=== PATIENT | male | born 1975 | race Caucasian/White ===

== ENCOUNTER 2017-01-29 08:07 | Emergency (ER) | payer MEDICARE, OTHER ==
[~2017-01-29] VITALS: Ht 188 cm; Wt 90.7 kg
[~2017-01-29 08:07] MED LIST: ALPR0.5T PO; BP MED PO; LAMO150T2 PO; LISI-603 PO; MIRT45TA5 PO; NEBI5TAB8 PO; OMEP20TA20 PO; OXYC15TA46 PO; ZIPR80CA2 PO; [UNRECOGNIZED DRUG - OTHER] PO; [UNRECOGNIZED DRUG - OTHER] PO
--- NOTE | 2017-01-29 08:33 | NUR ---
PT RAEC'D TO ER C/O BACK PAIN CHRONIC . HAD EPIDURAL X2 01/19/17 DIDNT FU FOR MD WAS NOTIFIED TO CONTACT . ABLE TOP WLAK SMELLS OF TSH . AND SPEECH OS SLURRED . AWAITING EVALUATION BY ER PROVIDER.
[2017-01-29 08:42] VITALS: BP 107/65
== END 2017-01-29 08:44 | disposition home or self-care (01) ==
LOC: ER 08:10
DX: G89.29 Other chronic pain (principal); M54.5 Low back pain; M79.662 Pain in left lower leg; K50.90 Crohn's disease, unspecified, without complications; C18.9 Malignant neoplasm of colon, unspecified; M19.90 Unspecified osteoarthritis, unspecified site; Z88.6 Allergy status to analgesic agent; Z88.8 Allergy status to other drugs, medicaments and biological substances
CPT/HCPCS: A4606; Z7502; Z7610

== ENCOUNTER 2019-12-13 12:39 | Emergency (ER) | payer BC, MEDICAID ==
[~2019-12-13] VITALS: Ht 182.9 cm; Wt 95.3 kg
[~2019-12-13 12:39] MED LIST changes: -MIRT45TA5 PO; +MIRT45TA83 PO
--- NOTE | 2019-12-13 12:54 | NUR ---
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
--- NOTE | 2019-12-13 13:26 | NUR ---
SEEN AND EXAMINED BY RONIT TAI
[2019-12-13] MEDS ORDERED: IBUPROFEN 600 MG TABLET PO ONE ×2 (13:30→13:38)
[2019-12-13] MEDS ORDERED: IV NS 0.9% 1,000 ML BAG IV ONE ×2 (13:30→14:30)
--- NOTE | 2019-12-13 13:40 | NUR ---
IV LINE ESTABLISHED, BLOOD DRAWN AND SENT TO LAB.
[2019-12-13 13:49] LABS: BASOPHILS # (AUTO) 0.1 /CMM (0.0-0.2); BASOPHILS % (AUTO) 0.5 % (0.0-2.0); EOSINOPHILS % (AUTO) 2.9 % (0.0-6.0); HEMATOCRIT 41 % (39-51); HEMOGLOBIN 13.7 g/dL (13.5-17.5); MEAN CORPUSCULAR HGB CONC 34 g/dl (31.0-36.0); MEAN CORPUSCULAR VOLUME 85 fL (80-96); MONOCYTES # (AUTO) 1.4 /CMM (0.1-1.30); MONOCYTES % (AUTO) 8.3 % (2.0-12.0); NEUTROPHILS # (AUTO) 14.1 /CMM (1.8-8.9); NEUTROPHILS % (AUTO) 82.3 % (43.0-81.0); PLATELET COUNT (AUTO) 335 /CMM (150-450); RED BLOOD CELL COUNT(AUTO) 4.76 MIL/uL (4.5-6.0); WHITE BLOOD COUNT (AUTO) 17.2 K/uL (4.3-11.0)
[2019-12-13 13:55] LABS: CALCIUM, SERUM 8.9 mg/dL (8.5-10.1); CREATININE 0.9 mg/dL (0.6-1.3); POTASSIUM 4.1 mmol/L (3.5-5.1)
[2019-12-13] MEDS ORDERED: VANCOMYCIN 1 GM in IV D5W 250 ML IV ONE (14:30)
[2019-12-13] MEDS ORDERED: PIPERACILLIN /TAZOBACTAM 3.375 G in IV D5W 50 ML IV ONE (14:30)
[2019-12-13 15:00] VITALS: BP 145/91
--- NOTE | 2019-12-13 15:10 | NUR ---
IV removed. Catheter intact and site benign. Pressure and 4x4 applied to site. No bleeding noted. Patient eloped from facility. ER MD notified.
--- NOTE | 2019-12-13 15:10 | NUR ---
Patient eloped from facility. ER MD notified.
== END 2019-12-13 15:12 | disposition left against medical advice (07) ==
LOC: ER 12:41
DX: L98.499 Non-pressure chronic ulcer of skin of other sites with unspecified severity (principal); R22.31 Localized swelling, mass and lump, right upper limb; G40.909 Epilepsy, unspecified, not intractable, without status epilepticus; M19.90 Unspecified osteoarthritis, unspecified site; Z88.6 Allergy status to analgesic agent; Z88.8 Allergy status to other drugs, medicaments and biological substances; Z85.038 Personal history of other malignant neoplasm of large intestine; Z79.899 Other long term (current) drug therapy
CPT/HCPCS: 36415; 80048; 83605; 85025; 87040 ×2; 96365; 99284; J2543; J7030 ×2; J7060; J3370

== ENCOUNTER 2021-07-19 22:26 | Emergency (ER) | payer MEDICARE, OTHER ==
[~2021-07-19] VITALS: Ht 190.5 cm; Wt 81.6 kg
[~2021-07-19 22:26] MED LIST changes: -LISI-603 PO; +LISI20TA30 PO
--- NOTE | 2021-07-19 23:16 | NUR ---
PT AAOX4. BIBSELF C/O SI WITH PLAN TO WALK ON FREEWAY. -HI. PLACED IN GOWN, ON MONITOR, AND PULSE OX. SITTER AT BEDSIDE. AWAITING ER MD FOR EVAL AND ORDERS.
[2021-07-19 23:48] LABS: CALCIUM, SERUM 8.5 mg/dL (8.5-10.1); CARBON DIOXIDE 25 mmol/L (21-32); CHLORIDE 101 mmol/L (98-107); CREATININE 0.8 mg/dL (0.6-1.3); GLUCOSE 152 mg/dL (74-106); POTASSIUM 3.5 mmol/L (3.5-5.1); SODIUM SERUM 137 mmol/L (136-145); UREA NITROGEN, BLOOD 9 mg/dL (7-18)
[2021-07-20 00:04] LABS: ACETAMINOPHEN 0 ug/ml (10-30); ALANINE AMINOTRANSFERASE 27 U/L (12-78); ALBUMIN 3.6 g/dL (3.4-5.0); ALCOHOL, BLOOD < 3 mg/dL (0-0); ALKALINE PHOSPHATASE 97 U/L (46-116); ASPARTATE AMINOTRANSFERASE 20 U/L (15-37); BILIRUBIN,DIRECT 0.1 mg/dL (0.0-0.2); BILIRUBIN,TOTAL 0.3 mg/dL (0.2-1.0); TOTAL PROTEIN, SERUM 7.5 g/dL (6.4-8.2)
[2021-07-20 00:05] LABS: BASOPHILS # (AUTO) 0.1 K/uL (0.0-0.2); BASOPHILS % (AUTO) 0.6 % (0.0-2.0); EOSINOPHILS % (AUTO) 3.9 % (0.0-6.0); HEMATOCRIT 42 % (39-51); HEMOGLOBIN 13.7 g/dL (13.5-17.5); LYMPHOCYTES # (AUTO) 1.6 K/uL (0.8-4.8); LYMPHOCYTES % (AUTO) 13.3 % (20.0-44.0); MEAN CORPUSCULAR HGB CONC 33 g/dl (31.0-36.0); MEAN CORPUSCULAR VOLUME 90 fL (80-96); MONOCYTES # (AUTO) 1.3 K/uL (0.1-1.30); MONOCYTES % (AUTO) 10.5 % (2.0-12.0); NEUTROPHILS # (AUTO) 8.6 K/uL (1.8-8.9); NEUTROPHILS % (AUTO) 71.7 % (43.0-81.0); PLATELET COUNT (AUTO) 457 K/uL (150-450); RED BLOOD CELL COUNT(AUTO) 4.67 MIL/uL (4.5-6.0)
[2021-07-20 01:23] LABS: BILIRUBIN,URINE NEGATIVE (NEGATIVE); COLOR,URINE YELLOW (YELLOW); LEUKOCYTE ESTERASE ,URINE NEGATIVE (NEGATIVE); NITRITE, URINE NEGATIVE (NEGATIVE); PH,URINE 7.5 (5.0-8.0); PROTEIN,URINE NEGATIVE (NEGATIVE); UGLUCOSE NEGATIVE (NEGATIVE); UROBILINOGEN,URINE 0.2 EU/dL (0.2)
--- NOTE | 2021-07-20 03:17 | NUR ---
PT STATED HE DENIES SI AND HI. REQUESTED TO LEAVE ED. ER MD AWARE.
[2021-07-20 03:18] VITALS: BP 138/75
== END 2021-07-20 03:19 | disposition home or self-care (01) ==
LOC: ER 22:33
DX: F15.10 Other stimulant abuse, uncomplicated (principal); F32.A Depression, unspecified; K50.90 Crohn's disease, unspecified, without complications; Z79.899 Other long term (current) drug therapy; Z88.6 Allergy status to analgesic agent; G40.909 Epilepsy, unspecified, not intractable, without status epilepticus; Z20.822 Contact with and (suspected) exposure to COVID-19; Z53.29 Procedure and treatment not carried out because of patient's decision for other reasons
CPT/HCPCS: 36415; 80048-TC; 80076-TC; 85025-TC; C9803; G0480

== ENCOUNTER 2021-11-16 22:18 | Emergency (ER) | payer MEDICARE, OTHER ==
[~2021-11-16] VITALS: Ht 190.5 cm; Wt 81.6 kg
--- NOTE | 2021-11-17 02:40 | NUR ---
BIBS. TO ER BED 19. AAOX4. NOT IN RESP DISTRESS. AMBULATORY ON STEADY GAIT. CAME IN SEEKING VOLUNTARY PSYCH ADMISSION. PT VERBALIZED SUICIDAL IDEATION WITH PLAN TO JUMP OF A BRIDGE. DENIES BOTH AUDITORY AND VISUAL HALLUCINATION. AWAITING MD FOR EVAL.
--- NOTE | 2021-11-17 02:54 | NUR ---
SECURITY AT BEDSIDE FOR WANDING
[2021-11-17 03:25] LABS: BILIRUBIN,URINE NEGATIVE (NEGATIVE); COLOR,URINE YELLOW (YELLOW); LEUKOCYTE ESTERASE ,URINE NEGATIVE (NEGATIVE); NITRITE, URINE NEGATIVE (NEGATIVE); PROTEIN,URINE NEGATIVE (NEGATIVE); UGLUCOSE NEGATIVE (NEGATIVE); UROBILINOGEN,URINE 0.2 EU/dL (0.2)
[2021-11-17 03:43] LABS: BASOPHILS # (AUTO) 0.1 K/uL (0.0-0.2); BASOPHILS % (AUTO) 1.3 % (0.0-2.0); EOSINOPHILS % (AUTO) 5.3 % (0.0-6.0); HEMATOCRIT 43 % (39-51); HEMOGLOBIN 14.4 g/dL (13.5-17.5); LYMPHOCYTES # (AUTO) 2.2 K/uL (0.8-4.8); LYMPHOCYTES % (AUTO) 21.7 % (20.0-44.0); MEAN CORPUSCULAR HGB CONC 34 g/dl (31.0-36.0); MEAN CORPUSCULAR VOLUME 88 fL (80-96); MONOCYTES % (AUTO) 9.6 % (2.0-12.0); NEUTROPHILS # (AUTO) 6.4 K/uL (1.8-8.9); NEUTROPHILS % (AUTO) 62.1 % (43.0-81.0); PLATELET COUNT (AUTO) 495 K/uL (150-450); RED BLOOD CELL COUNT(AUTO) 4.83 MIL/uL (4.5-6.0); WHITE BLOOD COUNT (AUTO) 10.4 K/uL (4.3-11.0)
[2021-11-17 04:36] LABS: CALCIUM, SERUM 8.8 mg/dL (8.5-10.1); CARBON DIOXIDE 30 mmol/L (21-32); CHLORIDE 103 mmol/L (98-107); CREATININE 0.8 mg/dL (0.6-1.3); GLUCOSE 127 mg/dL (74-106); POTASSIUM 3.3 mmol/L (3.5-5.1); SODIUM SERUM 140 mmol/L (136-145); UREA NITROGEN, BLOOD 14 mg/dL (7-18)
[2021-11-17 04:47] LABS: ALANINE AMINOTRANSFERASE 15 U/L (12-78); ALBUMIN 3.9 g/dL (3.4-5.0); ALCOHOL, BLOOD < 3 mg/dL (0-0); ALKALINE PHOSPHATASE 102 U/L (46-116); ASPARTATE AMINOTRANSFERASE 14 U/L (15-37); BILIRUBIN,DIRECT 0.1 mg/dL (0.0-0.2); BILIRUBIN,TOTAL 0.3 mg/dL (0.2-1.0); TOTAL PROTEIN, SERUM 8.3 g/dL (6.4-8.2)
[2021-11-17 04:48] LABS: ACETAMINOPHEN 0 ug/ml (10-30)
[2021-11-17] MEDS ORDERED: OLANZAPINE 5 MG TABLET ONE (05:07)
[2021-11-17] MEDS ORDERED: HYDROCODONE/APAP 5/325MG TABLET ONE (05:08)
[2021-11-17] MEDS ORDERED: OLANZAPINE 5 MG TABLET PO ONE (05:30)
[2021-11-17] MEDS ORDERED: HYDROCODONE/APAP 5/325MG TABLET PO ONE (05:30)
--- NOTE | 2021-11-17 05:32 | NUR ---
FACESHEET AND CLINICALS FAXED TO [facility].
--- NOTE | 2021-11-17 08:22 | NUR ---
SPOKE TO [facility] AND THEY WILL ACCEPT THE PATIENT.
[2021-11-17] MEDS ORDERED: POTASSIUM CHLORIDE 20 MEQ TAB.PRT.SR PO ONE ×2 (08:27→08:30)
--- NOTE | 2021-11-17 13:15 | NUR ---
PT WAS VERBALLY ABUSIVE TO STAFF AND ELOPED.
[2021-11-17 13:16] VITALS: BP 141/82
== END 2021-11-17 13:17 | disposition left against medical advice (07) ==
LOC: ER 22:18
DX: F31.9 Bipolar disorder, unspecified (principal); K50.90 Crohn's disease, unspecified, without complications; G47.9 Sleep disorder, unspecified; F15.20 Other stimulant dependence, uncomplicated; Z86.69 Personal history of other diseases of the nervous system and sense organs; Z85.038 Personal history of other malignant neoplasm of large intestine; Z88.6 Allergy status to analgesic agent; Z88.8 Allergy status to other drugs, medicaments and biological substances; F17.210 Nicotine dependence, cigarettes, uncomplicated; Z79.899 Other long term (current) drug therapy; Z20.822 Contact with and (suspected) exposure to COVID-19; R03.0 Elevated blood-pressure reading, without diagnosis of hypertension; Z53.20 Procedure and treatment not carried out because of patient's decision for unspecified reasons; R45.851 Suicidal ideations
CPT/HCPCS: 36415; 80048-TC; 80076-TC; 84132-TC; 85025-TC; C9803; G0480

== ENCOUNTER 2022-07-24 20:23 | Emergency (ER) | payer OTHER ==
[~2022-07-24] VITALS: Ht 185.4 cm; Wt 81.6 kg
[2022-07-24] MEDS ORDERED: ACETAMINOPHEN ES 500 MG TABLET PO ONE (22:00)
[2022-07-24] MEDS ORDERED: NAPROXEN 250 MG TABLET PO ONE (22:30)
[2022-07-24] MEDS ORDERED: NAPROXEN 250 MG TABLET ONE (22:34)
[2022-07-24] MEDS ORDERED: NAPR-1192 PO (23:37)
[2022-07-24 23:46] VITALS: BP 135/88
--- NOTE | 2022-07-24 23:46 | NUR ---
Patient discharged to home in stable condition. Written and verbal after care instructions given. Patient verbalizes understanding of instruction.
== END 2022-07-24 23:46 | disposition home or self-care (01) ==
LOC: ER 20:25
DX: R51.9 Headache, unspecified (principal); F20.9 Schizophrenia, unspecified; F32.A Depression, unspecified; F17.200 Nicotine dependence, unspecified, uncomplicated; Z88.8 Allergy status to other drugs, medicaments and biological substances; Z79.899 Other long term (current) drug therapy

== ENCOUNTER 2024-06-25 04:06 | Emergency (ER) | payer MEDICAID, OTHER ==
[~2024-06-25] VITALS: Ht 172.7 cm; Wt 81.6 kg
[~2024-06-25 04:06] MED LIST changes: +NAPR-1192 PO
[2024-06-25 04:15] VITALS: TEMP 98.7
[2024-06-25 06:39] VITALS: BP 133/84; O2SAT 98
== END 2024-06-25 06:40 | disposition home or self-care (01) ==
LOC: ER 04:08
DX: S00.83XA Contusion of other part of head, initial encounter (principal); K50.90 Crohn's disease, unspecified, without complications; F31.9 Bipolar disorder, unspecified; F20.9 Schizophrenia, unspecified; M19.90 Unspecified osteoarthritis, unspecified site; F19.10 Other psychoactive substance abuse, uncomplicated; F17.200 Nicotine dependence, unspecified, uncomplicated; Z88.6 Allergy status to analgesic agent; Z88.8 Allergy status to other drugs, medicaments and biological substances; Z86.69 Personal history of other diseases of the nervous system and sense organs; Z85.238 Personal history of other malignant neoplasm of thymus; W22.09XA Striking against other stationary object, initial encounter; Y93.89 Activity, other specified; Y92.89 Other specified places as the place of occurrence of the external cause; Y99.8 Other external cause status
CPT/HCPCS: 70450-TC

== ENCOUNTER 2024-11-14 12:18 | Emergency (ER) | payer OTHER ==
[~2024-11-14] VITALS: Ht 188 cm; Wt 90.7 kg
[2024-11-14 13:43] VITALS: BP 128/77; TEMP 98; O2SAT 97
== END 2024-11-14 13:43 | disposition home or self-care (01) ==
LOC: ER 12:22
DX: F17.200 Nicotine dependence, unspecified, uncomplicated; K50.90 Crohn's disease, unspecified, without complications; Z79.899 Other long term (current) drug therapy